=== PATIENT | female | born 1995 | race Caucasian/White ===

== ENCOUNTER 2018-01-31 20:14 | Emergency (ER) | payer OTHER ==
[~2018-01-31] VITALS: Ht 154.9 cm; Wt 59.0 kg
[2018-02-01] MEDS ORDERED: KETO10TA2 PO (03:54)
[2018-02-01] MEDS ORDERED: CEFUROXIME250 MG PO (03:54)
== END 2018-02-01 04:06 | disposition home or self-care (01) ==
LOC: ER 20:14
DX: N91.1 Secondary amenorrhea (principal); R10.2 Pelvic and perineal pain